=== PATIENT | male | born 1945 | race Caucasian/White ===

== ENCOUNTER → 2016-08-20 | Day surgery (SDC) | payer MEDICARE, OTHER ==
[~2016-08-20] VITALS: Ht 172.7 cm; Wt 65.2 kg
[~2016-08-20] MED LIST: ALLEGRA-D 24 H1 EACH PO; ASPIRIN EC81 MG PO; AZILECT1 MG PO; CALCIUM 600 +1 EAC3 PO; CIPRO500 MG PO; COMTAN200 MG PO; FOSAMAX70 MG PO; MINOCYCLINE HCL50 MG PO; MIRALAX17 GM PO; MUCINEX DM ER1 EAC1 PO; NASONEX NASAL S17 GM NOSE; NEXIUM40 MG PO; ROBINUL1 MG PO; SINEMET 25-1001 EACH PO; SINGULAIR10 MG PO; STOOL SOFTENER250 MG PO; TOPROL XL 5050 MG PO; VESICARE10 MG PO; [UNRECOGNIZED DRUG - OTHER] PO
--- NOTE | ~2016-08-20 | OR ---
PATIENT'S NAME: [facility] AGE: 70 Y [address] ROOM: [place] [address] [place] [facility] [place]: 08[place]20[place] OR/Procedure Report DISCHARGE DATE: FAMILY PHYSICIAN: Pierce Calero MD ATTENDING PHYSICIAN: Lloyd Lainez SURGEON: Lloyd Lainez MD GROUP HOME PARAPROFESSIONAL: DATE OF PROCEDURE: 08/20/2016 PREOPERATIVE DIAGNOSIS: Right ureteral stent with right hydronephrosis. POSTOPERATIVE DIAGNOSIS: Right ureteral stent with right hydronephrosis. PROCEDURES: 1. Cystoscopy and removal of stent. 2. Cystoscopy and retrogrades. DESCRIPTION OF PROCEDURE: After adequate anesthesia, he was prepped and draped. The cystoscope was passed. Anterior urethra was normal. His prostate was absent, but he had a lot of scarring and fixation around the bladder neck area from his previous radiation. The bladder neck area was fixed and rigid. Examination of bladder was unremarkable. With endoscopic forceps, the right ureteral stent was removed. A right retrograde ureteral pyelogram was done using an open-ended yellow catheter. The stent was not replaced. He was then accompanied to recovery area. RETROGRADE PYELOGRAM REPORT: Initial film showed normal bony structures. After injection of contrast media, the ureter was normal course and caliber. The proximal ureter appeared fairly normal now. There was mild pyelocaliectasis, but good drainage. IMPRESSION: Pyelocaliectasis, right, mild. LLOYD LAINEZ MD EKL/modl PATIENT'S NAME: [facility] AGE: 70 Y [address] ROOM: [place] [address] [place] [facility] [place]: 08/20/[place] OR/Procedure Report DISCHARGE DATE: FAMILY PHYSICIAN: Pierce Calero MD ATTENDING PHYSICIAN: Lloyd Lainez /[id number] d: 08/20/16919 t: 08/21/16 0441, OPERATIVE SUMMARY
--- NOTE | ~2016-08-20 | HP ---
PATIENT'S NAME: RHONDA DELVALLE [facility] AGE: 70 Y [address] ROOM: [place] [address] LOCATION: [facility] ADMIT DATE: 08/20/2016 History & Physical DISCHARGE DATE: FAMILY PHYSICIAN: Pierce Calero MD ATTENDING PHYSICIAN: Lloyd Lainez DATE OF SERVICE: HISTORY: A 70-year-old male who has a rather long involved past history with a diagnosis of adenocarcinoma of the prostate in 2001. At that time, he had a total perineal prostatectomy followed by radiation therapy to the prostatic bed. This was done in [place]. He has a past history of having a TUR of the prostate in 1992. He also has had problems with recurrent urinary tract infections. His last infection in April 2016 revealed Klebsiella and an Enterococcus. He also has had problems with narrowing of the right proximal ureter and has had a right ureteral stent. He is seen now for cysto retrograde with possible stent change. PAST MEDICAL HISTORY: Illnesses: Parkinsonism 2012, diverticulitis, adenocarcinoma of the prostate. OPERATIONS: 1. TUR of the prostate. 2. Perineal prostatectomy. 3. Hydrocelectomy. 4. Inguinal herniorrhaphy. PHYSICAL EXAMINATION: GENERAL: A well-developed, well-nourished male. CHEST: Clear. HEART: Normal sinus rhythm. ABDOMEN: Soft with no palpable masses. : Normal penis. Testicles are normal size and normal to palpation. The prostatic fossa is empty. RECTAL: Good sphincter tone and no palpable masses. EXTREMITIES: Negative. IMPRESSION: Hydronephrosis, right kidney with stent. PLAN: As above. PATIENT'S NAME: DELVALLERHONDA [facility] AGE: 70 Y [address] ROOM: [place] [address] LOCATION: [facility] ADMIT DATE: 08/20/2016 History & Physical DISCHARGE DATE: FAMILY PHYSICIAN: Pierce Calero MD ATTENDING PHYSICIAN: Lloyd Lainez LLOYD LAINEZ MD EKL/modl /[id number] D: [id number] T: [id number] HISTORY & PHYSICAL
[2016-08-20 06:39] LABS: BASOPHIL % 0.3 %; EOSINOPHIL # 0.1 K/uL (0.0-0.5); EOSINOPHIL % 1.3 %; HEMATOCRIT 39.3 % (37.0-53.0); HEMOGLOBIN 13.9 g/dL (11.0-16.0); IMMATURE GRANULOCYTE % 0.2 %; LYMPHOCYTE # 2.8 K/uL (0.8-4.0); LYMPHOCYTE % 46.2 %; MCH 31.7 pg (27.0-34.0); MCHC 35.4 gm/dL (32.0-36.5); MCV 89.7 fl (83.0-98.0); MONOCYTE # 0.6 K/uL (0.0-1.0); MONOCYTE % 9.9 %; MPV 10.3 fl (9.4-12.4); NEUTROPHIL # (ANC) 2.5 K/uL (1.4-9.0); NEUTROPHIL % 42.1 %; NRBC % 0 /100WBC (0-0.00); PLATELET COUNT 128 K/uL (150-450); RBC 4.38 M/uL (3.50-5.50); RDW-CV 12.1 % (11.9-14.6)
[2016-08-20 06:52] LABS: ALBUMIN 3.7 gm/dL (3.5-5.0); ALK PHOS 65 IU/L (33-138); ALT 18 IU/L (12-78); ANION GAP 7.5 (10.0-19.0); AST 15 IU/L (10-40); BLOOD UREA NITROGEN 17 mg/dL (6-24); CALCIUM 8.6 mg/dL (8.5-10.5); CHLORIDE 108 mMol/L (96-110); CO2 30 mMol/L (22-32); CREATININE 0.9 mg/dL (0.6-1.3); ESTIMATED GFR (MDRD EQUATION) > 60; POTASSIUM 3.5 mMol/L (3.7-5.1); SODIUM 142 mMol/L (135-145); TOTAL BILIRUBIN 1.1 mg/dL (0.0-1.5); TOTAL PROTEIN 6.9 g/dL (6.0-8.4)
== END | disposition disaster alternative care site (69) ==
LOC: GPOC 08-19 14:00 → GSDC 06:00 → GPOC 14:00
PROVIDERS: Urology
PROC: BT1DZZZ Fluoroscopy of Right Kidney, Ureter and Bladder (ICD-10-PCS; principal; 2016-08-20)
PROC: 0TC68ZZ Extirpation of Matter from Right Ureter, Via Natural or Artificial Opening Endoscopic (ICD-10-PCS; 2016-08-20)
DX: N13.30 Unspecified hydronephrosis (principal); Z46.6 Encounter for fitting and adjustment of urinary device; K21.9 Gastro-esophageal reflux disease without esophagitis; G20 Parkinson's disease; Z90.49 Acquired absence of other specified parts of digestive tract; Z98.890 Other specified postprocedural states; Z79.899 Other long term (current) drug therapy
CPT/HCPCS: J0744; J2001; J7120